=== PATIENT | male | born 1970 | race Hispanic/Latino ===

== ENCOUNTER → 2019-09-19 | Outpatient (CLI) | payer OTHER | LOC: RAD 11:36 | PROVIDERS: ATTEND Specialist | DX: M79.89 Other specified soft tissue disorders (principal); M79.661 Pain in right lower leg | CPT/HCPCS: 93971 ==

== ENCOUNTER → 2020-02-20 | Outpatient (CLI) | payer OTHER ==
--- NOTE | 2020-02-20 13:18 | Diagnostic Imaging Report ---
Right knee MRI without contrast. History: Knee pain. Decreased range of motion. Anterior cruciate ligament tear. Pain not responding to conservative management Comparison: None. Technique: Multiplanar multi-sequence MRI of the knee without contrast. Findings: Medial compartment: Mild scarring and thickening of the proximal medial collateral ligament likely due to a remote injury. The medial meniscus is intact. The medial compartmental articular cartilage surfaces are thin with regions of fraying and fissuring. Lateral compartment: No meniscal tear or cartilage abnormality. The LCL complex is normal. Mild bone marrow edema in the lateral tibial plateau could be due to a contusion. No cortical fracture is seen. Intercondylar notch: Mild chronic appearing sprain of the anterior cruciate ligament. Mild chronic appearing sprain with attenuation of the posterior cruciate ligament. The majority of the fibers are intact. Patellofemoral compartment: Articular cartilage fraying and fissuring in the patellofemoral compartment. Extensor mechanism: The quadriceps and patellar tendons are normal. Other findings: There is a joint effusion and synovitis. There is no acute fracture, subluxation or avascular necrosis. Moderate amount of edema within Hoffa's fat deep to the distal patellar tendon could be due to bursitis. This is best seen on sagittal series 3 image 23. IMPRESSION: Mild chronic appearing sprain of the anterior cruciate ligament. Mild chronic appearing sprain with attenuation of the posterior cruciate ligament. The majority of the fibers are intact. Mild scarring and thickening of the proximal medial collateral ligament likely due to a remote injury. The majority of the fibers are intact. Mild bone marrow edema in the lateral tibial plateau could be due to a contusion. No cortical fracture is seen. Joint effusion, synovitis and moderate amount of edema within Hoffa's fat deep to the distal patellar tendon could be due to bursitis. Signed by: Dr. Emigdio Grimm M.D. on 02/20/2020 1:15 PM
== END ==
LOC: MRI 09:23
PROVIDERS: ATTEND Specialist
DX: S83.511A Sprain of anterior cruciate ligament of right knee, initial encounter (principal)